=== PATIENT | female | born 1950 | race African-American/Black ===

== ENCOUNTER 2024-09-22 09:10 | Emergency (ER) | payer OTHER, MEDICAID ==
[~2024-09-22] VITALS: Ht 162.6 cm; Wt 70.0 kg
[2024-09-22 09:12] VITALS: O2SAT 87
[2024-09-22 09:36] LABS: ADD RBC MORPHOLOGY YES; BASOPHILS % 0.6 % (0.0-2.0); EOSINOPHILS % 1.4 % (0.0-5.0); HEMATOCRIT. 41.9 % (36.0-48.0); HEMOGLOBIN. 12.4 g/dL (12.0-16.0); LYMPHOCYTES % 8.6 % (20.0-50.0); MEAN PLATELET VOLUME 7.4 fl (7.4-10.4); MONOCYTES % 10.3 % (2.0-8.0); NEUTROPHILS % 79.1 % (40.0-76.0); PLATELET 378 x1000/uL (130-400); RED BLOOD CELL COUNT 5.42 mill/uL (4.2-5.4); RED CELL DISTRIBUTION WIDTH 22.8 % (11.6-14.6)
[2024-09-22 09:51] LABS: CREATININE 1.1 mg/dL (0.6-1.0); UREA NITROGEN BLOOD 22 mg/dL (9-23)
[2024-09-22 09:52] LABS: TROPONIN I HIGH SENSITIVITY 14 ng/L (3.0-34)
[2024-09-22 09:53] LABS: ASPARTATE AMINOTRANSFERASE 25 IU/L (<34); BILIRUBIN DIRECT 0.3 mg/dL (<=3.0)
[2024-09-22 09:54] LABS: BILIRUBIN TOTAL 0.8 mg/dL (0.1-1.0); PROTEIN TOTAL 6.2 g/dL (6.0-8.3)
[2024-09-22 10:25] LABS: PLATELET ESTIMATE NORMAL
[2024-09-22] MEDS: ONDANSETRON HCL 4MG/2ML INJ IV ONE (12:32)
[2024-09-22 13:14] LABS: TROPONIN I HIGH SENSITIVITY 16 ng/L (3.0-34)
[2024-09-22 16:22] VITALS: BP 139/75; PULSE 80; RESP 16; TEMP 36.7; O2SAT 89
== END 2024-09-22 16:23 | disposition short-term general hospital (02) ==
LOC: ER 09:10 → CMPBEDREQ 09-23 08:54
DX: R55 Syncope and collapse (principal); J96.91 Respiratory failure, unspecified with hypoxia; E11.9 Type 2 diabetes mellitus without complications; E78.00 Pure hypercholesterolemia, unspecified; Z79.899 Other long term (current) drug therapy
CPT/HCPCS: 99285; 96374; 71045; 80076; 80048; 83880; 85025; 84484; 36415; 93005; J2405; 99291